=== PATIENT | male | born 1955 | race Caucasian/White ===

== ENCOUNTER 2022-11-06 14:33 | Emergency (ER) | payer MEDICARE, BC ==
[2022-11-06] MEDS ORDERED: Sodium Chloride 0.9% 10 ML Syringe FLUSH PRN (15:45)
[2022-11-06] MEDS ORDERED: HYDROmorphone 0.5 MG/0.5 ML Syringe IVPUSH ONE (16:17)
[2022-11-06] MEDS ORDERED: Sodium Chloride 0.9% 1,000 ML IV ONE (16:30)
== END 2022-11-06 18:00 | disposition home or self-care (01) ==
LOC: JD.ED 14:33
DX: N13.2 Hydronephrosis with renal and ureteral calculous obstruction (principal)
CPT/HCPCS: 36415; 74176; 80053; 81001; 83690; 83735; 85025; 86140; 96361; 96374; 99284; J1170; J3490; J7030